=== PATIENT | male | born 1980 | race Caucasian/White ===

== ENCOUNTER 2021-03-12 09:16 | Emergency (ER) | payer BC ==
--- NOTE | 2021-03-12 11:55 | EDM.PDOC ---
ED HPI GENERAL MEDICAL PROBLEM - General Chief Complaint: Skin Complaint Stated Complaint: RASH Time Seen by Provider: 03/12/21 11:30 Source of Information: Reports: Patient, RN, RN Notes Reviewed History Limitations: Reports: No Limitations - History of Present Illness INITIAL COMMENTS - FREE TEXT/NARRATIVE: Vishnu is a 40 y/o male who presents to the ED via personal vehicle with complaints of rash. The patient notes the rash started on his left lateral foot two weeks prior and has since migrated up his leg, to his bilateral thighs and onto his distal abdomen. The rash spares the genitals, perineum, and buttocks. He denies changes to diet, medication, soaps, or lotions. 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 He has not been to his PCP or dermatology for this rash. He denies utilizing medications for the rash or itching. He denies fever, shaking chills, palpitations, nausea, vomiting, diarrhea, or purulent drainage from the lesions. - Related Data Allergies Allergy/AdvReac Type Severity Reaction Status Date / Time No Known Allergies Allergy Verified 03/12/21 10:32 Home Meds: Home Meds . [No Known Home Meds] 03/12/21 [History] Past Medical History HEENT History: Reports: Impaired Vision - Infectious Disease History Infectious Disease History: Reports: Chicken Pox - Past Surgical History Musculoskeletal Surgical History: Reports: Other (See Below) Other Musculoskeletal Surgeries/Procedures:: Left ankle surgery 2019, pins in place. Social & Family History - Tobacco Use Tobacco Use Status *Q: Never Tobacco User - Caffeine Use Caffeine Use: Reports: Coffee - Recreational Drug Use Recreational Drug Use: No ED ROS GENERAL - Review of Systems Review Of Systems: Comprehensive ROS is negative, except as noted in HPI. ED EXAM, SKIN/RASH Exam: See Below Exam Limited By: No Limitations General Appearance: Alert, No Apparent Distress Eye Exam: Bilateral Eye: EOMI, Normal Inspection, PERRL (3mm) Ears: Normal External Exam, Hearing Grossly Normal Nose: Normal Inspection, Normal Mucosa, No Blood Throat/Mouth: Normal Inspection, Normal Oropharynx, Normal Voice, No Airway Compromise Head: Atraumatic, Normocephalic Neck: Normal Inspection, Supple, Non-Tender, Full Range of Motion. No: Lymp hadenopathy (L), Lymphadenopathy (R) Respiratory/Chest: No Respiratory Distress, Lungs Clear, Normal Breath Sounds, No Accessory Muscle Use, Chest Non-Tender Cardiovascular: Normal Peripheral Pulses, Regular Rate, Rhythm, No Edema, No Gallop, No JVD, No Murmur, No Rub Peripheral Pulses: 2+: Radial (L), Radial (R), Dorsalis Pedis (L), Dorsalis Pedis (R) GI/Abdominal: Normal Bowel Sounds, Soft, Non-Tender, No Distention, No Abnormal Bruit, No Mass, Pelvis Stable, Other (Pinpoint vesicular, erythematous lesions diffuse to lower abdomen) (Male) Exam: Deferred Rectal (Males) Exam: Deferred Back Exam: Normal Inspection, Full Range of Motion Extremities: Normal Range of Motion, No Pedal Edema, Normal Capillary Refill, Redness (Surrounding lesions), Other (Pinpoint vesicular, erythematous lesions diffuse to bilateral thighs and left lower extremity with large area of erythema to left dorsal, medial foot). No: Joint Swelling, Increased Warmth, Mottled, Pallor Neurological: Alert, Oriented, CN II-XII Intact, Normal Cognition, Normal Gait, Normal Reflexes, No Motor/Sensory Deficits Psychiatric: Normal Affect, Normal Mood Skin: Warm, Dry, Erythema (Surrounding lesions; Large area of erythema to left dorsal, medial foot), Rash (See above). No: Jaundice, Mottled, Pallor, Petechiae Location, Skin: Abdomen, Lower Extremity, Right, Lower Extremity, Left Characteristics: Fine, Vesicular, Erythematous Associated features: Weeping. No: Warmth, Tenderness, Swelling, Inflammation, Crusting Lymphatic: No Adenopathy Course - Vital Signs Last Recorded V/S: Last Vital Signs Temp 97.6 F 03/12/21 10:32 Pulse 79 03/12/21 10:32 Resp 18 03/12/21 10:32 BP 152/81 H 03/12/21 10:32 Pulse Ox 100 03/12/21 10:32 - Orders/Labs/Meds Meds: Medications Discontinued Medications Generic Name Dose Route Start Last Admin Trade Name Freq PRN Reason Stop Dose Admin Diphenhydramine HCl 50 mg 03/12/21 11:55 03/12/21 12:04 Diphenhydramine 50 Mg Cap PO 03/12/21 11:56 50 mg ONETIME ONE Administration Methylprednisolone Sodium Succinate 125 mg 03/12/21 12:11 03/12/21 12:12 Methylprednisolone Sodium Succinate 125 Mg/2 Ml Sdv IM 03/12/21 12:12 125 mg ONETIME ONE Administration - Re-Assessments/Exams Free Text/Narrative Re-Assessment/Exam: 03/12/21 Solu-Medrol 125mg IVP and Benadryl 50mg PO administered. Findings of examination reviewed with patient. Will treat with Medrol dose pack. Discussed supportive cares for dermatitis. Patient instructed to follow up with primary care, or obtain dermatology referral. Red flag signs and symptoms which would warrant reevaluation reviewed. Patient verbalized understanding and agreement with the plan of care. Departure - Departure Time of Disposition: 11:57 Disposition: Home, Self-Care 01 Condition: Good Clinical Impression: Contact dermatitis Qualifiers: Contact dermatitis type: unspecified Contact dermatitis trigger: unspecified trigger Qualified Code(s): L25.9 - Unspecified contact dermatitis, unspecified cause - Discharge Information *PRESCRIPTION DRUG MONITORING PROGRAM REVIEWED*: Not Applicable *COPY OF PRESCRIPTION DRUG MONITORING REPORT IN PATIENT NICK: Not Applicable Instructions: Rash, Adult, Contact Dermatitis Referrals: PCP,Not In Area [Primary Care Provider] - Forms: ED Department Discharge Additional Instructions: Rx: Medrol Dose Pack 1.) Start your Medrol Dose pack tomorrow morning, per packet instructions. 2.) You may take Benadryl 50mg, twice a day a itching and rash persist. Should you experience too much drowsiness from the Benadryl you may try fexofenadine 120mg, twice a day instead. 3.) You may continue with the Calmoseptine cream. 4.) You may apply cold compresses to the areas of discomfort. 5.) Follow up with your primary care provider in 3-5 days, should rash persist or worsen despite medications. Sepsis Event Note (ED) - Evaluation Sepsis Screening Result: No Definite Risk
[2021-03-12] MEDS: methylPREDNISolone Sodium Succinate 125 MG/2 ML SDV IVPUSH ONE (12:04)
[2021-03-12] MEDS: diphenhydrAMINE 50 MG Cap PO ONE (12:04)
[2021-03-12] MEDS: methylPREDNISolone Sodium Succinate 125 MG/2 ML SDV IM ONE (12:12)
== END 2021-03-12 12:15 | disposition home or self-care (01) ==
LOC: DL.ED 09:16
DX: L25.9 Unspecified contact dermatitis, unspecified cause (principal)
CPT/HCPCS: 96372; 99282; J2930; Q0163